=== PATIENT | female | born 1965 | race African-American/Black ===

== ENCOUNTER 2016-11-25 20:10 | Emergency (ER) | payer OTHER ==
[2016-11-25 20:22] VITALS: BP 155/104; PULSE 92; TEMP 98.3; BMI 38.0
[2016-11-25] MEDS ORDERED: LISINOPRIL 10 MG TABLET (FP) PO ONE (21:19)
--- NOTE | 2016-11-25 21:19 | PDOC ---
History of Present Illness - General History Source: Patient Exam Limitations: No Limitations - History of Present Illness Initial Comments: 11/25/16 23:48 The patient is a 51-year-old female with a significant past medical history of HTN and asthma, and presents to the emergency department with worsening intermittent right lower extremity pain for 1 week. She states the RLE pain starts when she is sitting, and is located from her knee to ankles. She reports pain at the posterior right knee with weight bearing. She states she has been taking Tylenol with moderate relief of pain. She denies erythema, swelling, or any acute trauma. She states she is concerned about the leg pain as her daughter has a history of a blood clot in the thigh. The patient denies chest pain, shortness of breath, headache and dizziness. The patient denies fever, chills, nausea, vomit, diarrhea and constipation. The patient denies dysuria, frequency, urgency and hematuria. Allergies: Penicillins Past Surgical History: None reported Social History: Current everyday smoker. Denies ETOH or drug use. PCP: Dr. Josh Jimenez <Leslee Mcneil - Last Filed: 11/25/16 23:48> <Carley Mcduffie - Last Filed: 11/26/16 00:15> - General Chief Complaint: Pain Stated Complaint: PAIN IN RT LEG Time Seen by Provider: 11/25/16 20:53 Past History <Leslee Mcneil - Last Filed: 11/25/16 23:48> - Past Medical History Asthma: Yes HTN: Yes - Immunization History Immunization Up to Date: Yes - Suicide/Smoking/Psychosocial Hx Smoking Status: Yes Smoking History: Current every day smoker Have you smoked in the past 12 months: Yes Number of Cigarettes Smoked Daily: 4 Information on smoking cessation initiated: No Hx Alcohol Use: No Drug/Substance Use Hx: No Substance Use Type: None <Carley Mcduffie - Last Filed: 11/26/16 00:15> - Past Medical History Allergies/Adverse Reactions: Allergies Allergy/AdvReac Type Severity Reaction Status Date / Time Penicillins Allergy Verified 11/25/16 20:19 Home Medications: Ambulatory Orders Lisinopril/Hydrochlorothiazide [Lisinopril-Hctz 20-25 mg Tab] 1 each PO DAILY Ibuprofen [Motrin] 800 mg PO TID #30 tablet 04/13/15 Methocarbamol [Robaxin -] 500 mg PO TID #30 tablet 04/13/15 Oxycodone HCl/Acetaminophen [Percocet 5-325 mg Tablet] 1 - 2 tab PO Q6H #20 tablet 04/13/15 Apixaban [Eliquis] 5 mg PO BID #60 tablet 11/26/16 Review of Systems - Review of Systems Able to Perform ROS?: Yes Comments:: 11/25/16 23:48 GENERAL/CONSTITUTIONAL: No fever or chills. No weakness. HEAD, EYES, EARS, NOSE AND THROAT: No change in vision. No ear pain or discharge. No sore throat. CARDIOVASCULAR: No chest pain or shortness of breath. RESPIRATORY: No cough, wheezing, or hemoptysis. GASTROINTESTINAL: No nausea, vomiting, diarrhea or constipation. GENITOURINARY: No dysuria, frequency, or change in urination. MUSCULOSKELETAL: No neck or back pain. EXTREMITIES: (+) Right lower extremity pain. SKIN: No rash NEUROLOGIC: No headache, vertigo, loss of consciousness, or change in strength/ sensation. HEMATOLOGIC/LYMPHATIC: No anemia, easy bleeding, or history of blood clots. ALLERGIC/IMMUNOLOGIC: No hives or skin allergy. <Leslee Mcneil - Last Filed: 11/25/16 23:48> *Physical Exam - Vital Signs Last Vital Signs Temp Pulse Resp BP Pulse Ox 98.3 F 92 H 18 155/104 100 11/25/16 20:20 11/25/16 20:20 11/25/16 20:20 11/25/16 20:20 11/25/16 20:20 - Physical Exam Comments: 11/25/16 23:48 GENERAL: Awake, alert, and fully oriented, in no acute distress HEAD: No signs of trauma EYES: PERRLA, EOMI, sclera anicteric, conjunctiva clear ENT: Auricles normal inspection, hearing grossly normal, nares patent, oropharynx clear without exudates. Moist mucosa NECK: Normal ROM, supple, no lymphadenopathy, JVD, or masses LUNGS: Breath sounds equal, clear to auscultation bilaterally. No wheezes, and no crackles HEART: Regular rate and rhythm, normal S1 and S2, no murmurs, rubs or gallops ABDOMEN: Soft, nontender, normoactive bowel sounds. No guarding, no rebound. No masses EXTREMITIES: (+) Right popliteal ttp. No ligament laxity. Normal range of motion , no edema. No clubbing or cyanosis. No cords, erythema, or tenderness NEUROLOGICAL: Cranial nerves II through XII grossly intact. Normal speech SKIN: Warm, Dry, normal turgor, no rashes or lesions noted. <Leslee Mcneil - Last Filed: 11/25/16 23:48> - Vital Signs Last Vital Signs Temp Pulse Resp BP Pulse Ox 98.3 F 92 H 18 155/104 100 11/25/16 20:20 11/25/16 20:20 11/25/16 20:20 11/25/16 20:20 11/25/16 20:20 <Carley Mcduffie - Last Filed: 11/26/16 00:15> ED Treatment Course - Medications Given in the ED: ED Medications Discontinued Medications Generic Name Dose Route Start Last Admin Trade Name Pradip PRN Reason Stop Dose Admin Ibuprofen 600 mg 11/25/16 21:20 11/25/16 22:16 Motrin - PO 11/25/16 21:21 600 mg ONCE ONE Administration Lisinopril 10 mg 11/25/16 21:19 11/25/16 22:16 Prinivil PO 11/25/16 21:20 10 mg ONCE ONE Administration <Leslee Mcneil - Last Filed: 11/25/16 23:48> Medical Decision Making - Medical Decision Making 11/26/16 00:02 Pt has posterior calf pain on the right. No redness or swelling or asymmetry. Pt states that her teenager daughter is on eliquis for a DVT. 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 Pt diagnosed with a DVT today. She will be placed on eliquis. Pt has HTN and she is non compliant with meds. She was given a half dose of lisinopril in the ER. SHe was advised to take her meds when she gets home. 11/26/16 00:08 11/26/16 00:08 Patient Name: YOSELYN NORTH THIS IS A PRELIMINARY REPORT FROM [facility] DATE OF SERVICE: 2016-11-25 21:28:12 IMAGES: 20 EXAM: US LOWER EXTREMITY VENOUS DOPPLER HISTORY:Right leg pain. Rule out DVT COMPARISON: None. FINDINGS: The common femoral, profunda femoris, superficial femoral and popliteal veins are all compressible with flow. The posterior tibial vein is marked as noncompressible on images and does not appear to change appreciably in caliber between the pre-and post- compression images. Posterior tibial flow remains intact. No Dawn's cyst is seen. IMPRESSION: Suspected posterior tibial vein thrombosis, no extension into the femoropopliteal deep system. THIS DOCUMENT HAS BEEN ELECTRONICALLY SIGNED 11/26/16 00:15 Pt doesn;t want to stay in the ER and refusing labs <Carley Mcduffie - Last Filed: 11/26/16 00:15> *DC/Admit/Observation/Transfer - Attestations Scribe Attestion: 11/25/16 23:51 Documentation prepared by Leslee Mcneil, acting as medical office professional instructor for Carley Mcduffie MD. <Leslee Mcneil - Last Filed: 11/25/16 23:48> - Discharge Dispostion Admit: No <Carley Mcduffie - Last Filed: 11/26/16 00:15> Diagnosis at time of Disposition: DVT (deep venous thrombosis) - Discharge Dispostion Disposition: HOME Condition at time of disposition: Stable - Prescriptions Prescriptions: Apixaban [Eliquis] 5 mg PO BID #60 tablet - Referrals Referrals: Josh Jimenez MD [Primary Care Provider] - - Patient Instructions Printed Discharge Instructions: DI for Deep Vein Thrombosis
[2016-11-25] MEDS ORDERED: IBUPROFEN 600 MG TABLET (FP) PO ONE ×2 (21:20→22:10)
[2016-11-25] MEDS ORDERED: LISINOPRIL 5 MG TABLET (FP) ONE (22:10)
[2016-11-25] MEDS ORDERED: APIXABAN 5 MG TABLET PO ONE (23:45)
== END 2016-11-26 00:28 | disposition home or self-care (01) ==
LOC: JER 20:10
DX: I82.441 Acute embolism and thrombosis of right tibial vein (principal); I10 Essential (primary) hypertension; J45.909 Unspecified asthma, uncomplicated; F17.210 Nicotine dependence, cigarettes, uncomplicated; Z79.01 Long term (current) use of anticoagulants; Z88.0 Allergy status to penicillin
CPT/HCPCS: 93971-TC; 99281-25

== ENCOUNTER 2016-12-07 11:29 | Emergency (ER) | payer OTHER ==
[2016-12-07 11:33] VITALS: BMI 38.9
--- NOTE | 2016-12-07 11:52 | PDOC ---
History of Present Illness - General History Source: Patient Exam Limitations: No Limitations - History of Present Illness Initial Comments: 12/07/16 11:52 Patient is a 51 year old female with history of HTN and asthma who presents with increasing right leg pain despite compliance with treatment for a DVT diagnosed on 11/25/16. Patient was seen in this ED on 11/25/2016 and found to have a nonocclusive thrombus in the right posterior tibial vein without extension into the femoropopliteal veins. She was started on Eliquis and followed up with her primary physician on the following day who switched her to enoxaparin 100 mg d/t insurance issues. Patient states that she has been compliant with her medication and has an hematology appointment in 5 days but the pain in her leg has been getting worse and became unbearable, 10/28 today. Endorses leg pain and warmth. Denies fever, chills, recent illnesses, shortness of breath, difficulty breathing, chest pain, palpitations, abdominal pains, nausea, vomiting, diarrhea and constipation. Patient endorses taking ibuprofen this morning. She smokes 3-4 cigarettes per day and has no history of cancer. <Ajay Moy - Last Filed: 12/08/16 09:48> <Leti Madera - Last Filed: 12/09/16 15:40> - General Chief Complaint: Pain Stated Complaint: RT LEG PAIN Time Seen by Provider: 12/07/16 11:50 Past History - Past Medical History Asthma: Yes HTN: Yes - Immunization History Immunization Up to Date: Yes - Suicide/Smoking/Psychosocial Hx Smoking Status: Yes Smoking History: Current every day smoker Have you smoked in the past 12 months: Yes Number of Cigarettes Smoked Daily: 4 Information on smoking cessation initiated: No Hx Alcohol Use: No Drug/Substance Use Hx: No Substance Use Type: None <Ajay Moy - Last Filed: 12/08/16 09:48> <Leti Madera - Last Filed: 12/09/16 15:40> - Past Medical History Allergies/Adverse Reactions: Allergies Allergy/AdvReac Type Severity Reaction Status Date / Time Penicillins Allergy Verified 12/07/16 11:30 Home Medications: Ambulatory Orders Lisinopril/Hydrochlorothiazide [Lisinopril-Hctz 20-25 mg Tab] 1 each PO DAILY Ibuprofen [Motrin] 800 mg PO TID #30 tablet 04/13/15 Methocarbamol [Robaxin -] 500 mg PO TID #30 tablet 04/13/15 Oxycodone HCl/Acetaminophen [Percocet 5-325 mg Tablet] 1 - 2 tab PO Q6H #20 tablet 04/13/15 Apixaban [Eliquis] 5 mg PO BID #60 tablet 11/26/16 Methylprednisolone [Medrol Dose Flo] 4 mg PO ASDIR #21 tablet 12/07/16 Oxycodone HCl/Acetaminophen [Percocet 5-325 mg Tablet] 1 - 2 tab PO Q6H PRN #24 tab MDD 8 12/07/16 Review of Systems - Review of Systems Able to Perform ROS?: Yes Comments:: 12/07/16 14:35 GEN: Denies fever, chills, recent illness HEENTM: Denies sore throat, Changes in vision, Changes in hearing Respiratory: Denies Cough, Shortness of Breath Cardiac: Denies Chest Pain, Syncope ABD/GI: Denies Abdominal Pain, Nausea, Vomiting, Diarrhea, Constipation : Denies Dysuria, Burning on urination Musculoskeletal: +right leg pain; Denies muscle or joint pain Integumentary: Denies diaphoresis, rashes, bruises Neurological: Denies MANSFIELD, dizziness, weakness All Other Systems Reviewed and Negative Is the patient limited Georgian proficient: No <Ajay Moy - Last Filed: 12/08/16 09:48> *Physical Exam - Vital Signs Last Vital Signs Temp Pulse Resp BP Pulse Ox 97.7 F 106 H 18 129/92 95 12/07/16 11:30 12/07/16 11:30 12/07/16 11:30 12/07/16 11:30 12/07/16 11:30 - Physical Exam Comments: 12/07/16 14:37 GENERAL: Nourished, Appropriately dressed, AAOx3, NAD HEAD: NCAT EYES: PERRLA, EOMI, sclera anicteric, conjunctiva clear ENT: hearing grossly normal, nares patent, no congestion NECK: Supple, Normal ROM, no LAD, JVD, or masses RESP: Speaking in full sentences, Symmetrical chest expansion, no respiratory distress, lungs CTAB HEART: RRR, normal S1-S2, no MRG ABDOMEN: Soft, NTND, multiple nontender ecchymosis to the abdominal pannus at injection sites, no guarding, no rebound. EXTREMITIES: Normal inspection, ROM limited by pain in right leg, posterior right leg ttp along both sides of the popliteal fossa NEUROLOGICAL: CN II-XII grossly intact. Normal speech, normal gait, no focal sensorimotor deficits SKIN: Warm, Dry, normal turgor, no rashes or lesions noted. <Ajay Moy - Last Filed: 12/08/16 09:48> - Vital Signs Last Vital Signs Temp Pulse Resp BP Pulse Ox 97.4 F L 90 16 104/66 98 12/07/16 15:43 12/07/16 15:43 12/07/16 15:43 12/07/16 15:43 12/07/16 15:43 <Leti Madera - Last Filed: 12/09/16 15:40> ED Treatment Course - LABORATORY CBC & Chemistry Diagram: 12/07/16 12:49 12/07/16 12:49 <Ajay Moy - Last Filed: 12/08/16 09:48> - LABORATORY CBC & Chemistry Diagram: 12/07/16 12:49 12/07/16 12:49 - ADDITIONAL ORDERS Additional order review: 12/07/16 12:49 RBC 4.71 MCV 88.8 MCHC 32.6 RDW 13.4 MPV 9.3 Neutrophils % 49.6 Lymphocytes % 36.6 Monocytes % 9.5 Eosinophils % 2.4 Basophils % 1.9 - Medications Given in the ED: ED Medications Discontinued Medications Generic Name Dose Route Start Last Admin Trade Name Pradip PRN Reason Stop Dose Admin Dexamethasone Sodium Phosphate 10 mg 12/07/16 15:36 12/07/16 15:42 Decadron Injection - IVPUSH 12/07/16 15:37 10 mg ONCE ONE Administration Oxycodone/Acetaminophen 1 combo 12/07/16 12:35 12/07/16 12:50 Percocet 5/325 - PO 12/07/16 12:36 1 combo ONCE ONE Administration Oxycodone/Acetaminophen 1 combo 12/07/16 14:32 12/07/16 14:40 Percocet 5/325 - PO 12/07/16 14:33 1 combo ONCE ONE Administration <Leti Madera - Last Filed: 12/09/16 15:40> Medical Decision Making - Medical Decision Making 12/07/16 12:29 51 year old smoker being treated for dvt in her right leg presenting with increased leg pain Ddx includes but is not limited to medication noncompliance, treatment failure, increasing occlusion, hypercoaguable state despite anticoagulation, fracture, soft tissue injury Pain control Repeat doppler Standard bloodwork 12/07/16 13:55 CBC WBC 8.9 K/mm3 (4.0-10.0) 12/07/16 12:49 RBC 4.71 M/mm3 (3.60-5.2) 12/07/16 12:49 Hgb 13.6 GM/dL (10.7-15.3) 12/07/16 12:49 Hct 41.8 % (32.4-45.2) 12/07/16 12:49 MCV 88.8 fl (80-96) 12/07/16 12:49 MCH 28.9 pg (25.7-33.7) 12/07/16 12:49 MCHC 32.6 g/dl (32.0-36.0) 12/07/16 12:49 RDW 13.4 % (11.6-15.6) 12/07/16 12:49 Plt Count 308 K/MM3 (134-434) 12/07/16 12:49 MPV 9.3 fl (7.5-11.1) 12/07/16 12:49 Neutrophils % 49.6 % (42.8-82.8) 12/07/16 12:49 Lymphocytes % 36.6 % (8-40) 12/07/16 12:49 Monocytes % 9.5 % (3.8-10.2) 12/07/16 12:49 Eosinophils % 2.4 % (0-4.5) 12/07/16 12:49 Basophils % 1.9 % (0-2.0) 12/07/16 12:49 Within normal limits, non concerning 12/07/16 14:11 CMP Sodium 141 mmol/L (136-145) 12/07/16 12:49 Potassium 3.8 mmol/L (3.5-5.1) 12/07/16 12:49 Chloride 103 mmol/L (98-107) 12/07/16 12:49 Carbon Dioxide 28 mmol/L (21-32) 12/07/16 12:49 Anion Gap 10 (8-16) 12/07/16 12:49 BUN 15 mg/dL (7-18) D 12/07/16 12:49 Creatinine 0.8 mg/dL (0.55-1.02) D 12/07/16 12:49 Creat Clearance w eGFR > 60 (>60) 12/07/16 12:49 Random Glucose 92 mg/dL (74-106) 12/07/16 12:49 Calcium 9.4 mg/dL (8.5-10.1) 12/07/16 12:49 Total Bilirubin 0.6 mg/dL (0.2-1.0) D 12/07/16 12:49 AST 16 U/L (15-37) 12/07/16 12:49 ALT 30 U/L (12-78) 12/07/16 12:49 Alkaline Phosphatase 93 U/L (45-117) 12/07/16 12:49 Total Protein 7.8 g/dl (6.4-8.2) 12/07/16 12:49 Albumin 4.2 g/dl (3.4-5.0) 12/07/16 12:49 Within normal limits, non concerning 12/07/16 14:30 Duplex shows no evidence of DVT in the right lower extremity. Patient should be ok for discharge if pain can be controlled. Patient still c/o pain, second percocet 12/07/16 15:30 Reevaluated patient. still c/o pain. Pain is with normal leg flexion (active or passive) and weight bearing Pain not elicited with palpation no pain with medial, lateral stress or hyperextension Cannot immobilize the leg d/t DVT Cannot use NSAID d/t anticoagulation Attempt to use decadron 10 mg 12/07/16 15:38 On reevaluation, pt endorses she has been having times when her leg is catching/ locking when going up stairs consistent with meniscus injury Pain is better managed and patient feels she could ambulate with assistance. Provided patient with crutches and instructed her on their use. Patient able to ambulate around the room Patient to be discharged with minimal number of percocet and medrol dose pack and orthopedic referral for early next week Plan discussed with patient and return precautions given. Patient verbalized understanding and agreement with the plan. <Ajay Moy - Last Filed: 12/08/16 09:48> *DC/Admit/Observation/Transfer - Discharge Dispostion Admit: No <Ajay Moy - Last Filed: 12/08/16 09:48> <Leti Madera - Last Filed: 12/09/16 15:40> Diagnosis at time of Disposition: Knee pain, acute Qualifiers: Laterality: right Qualified Code(s): M25.561 - Pain in right knee - Discharge Dispostion Disposition: HOME Condition at time of disposition: Stable - Prescriptions Prescriptions: Methylprednisolone [Medrol Dose Flo] 4 mg PO ASDIR #21 tablet Oxycodone HCl/Acetaminophen [Percocet 5-325 mg Tablet] 1 - 2 tab PO Q6H PRN #24 tab MDD 8 PRN Reason: Pain - Referrals Referrals: Josh Jimenez MD [Primary Care Provider] - Ritesh Soto MD [Staff Physician] - - Patient Instructions Printed Discharge Instructions: Meniscal Tear Additional Instructions: You need to call Dr. Soto's office next week to make an appointment to evaluate your knee. As we discussed, this may require an MRI. It is important that you DO NOT put compression on the leg. This could complicate the treatment for your DVT. It is also important that you NOT take any NSAID medication including Asprin, Advil and naproxen. I have provided a prescription for pain medicine. You can take two of these every 6 hours as needed for pain. Do not take this medication with other medications containing Tylenol. This medication may make you sleepy and you should not drive or operate heavy machinery until you know how it affects you. I have also provided a prescription for a steroid taper that you should take as directed. If your pain becomes significantly worse and is not relieved with the pain medication or your develop any new or concerning symptoms such as difficult breathing or chest pain you need to return to the emergency department immediately. Print Language: IRISH
--- NOTE | 2016-12-07 12:18 | PDOC ---
Attending Attestation - HPI HPI: 12/07/16 12:23 51 year old female, with significant past medical history of DVT (11/25/16 on lovenox), HTN, and asthma, who presents to the emergency room with RLE pain and swelling x 2 weeks. She states that she has been compliant with lovenox, but the pain has persisted and progressively worsened to an 8/10 in severity. The pain is exacerbated secondary to walking and is preventing her from bending her leg. She notes that she followed up with her PCP the day after being discharged (11/26/16) and has a follow up appointment with hematology/oncology on Saturday , December 12. Denies chest pain, SOB. Denies fever, chills, nausea, vomiting. Denies abdominal pain. Allergies: penicillins Social history: Tobacco use (3-4 cigarettes/day). PCP: Dr. Josh Jimenez 12/07/16 15:00 <Jaclyn Lutz - Last Filed: 12/07/16 15:00> - Resident Resident Name: Ajay Moy - ED Attending Attestation I have performed the following: I have examined & evaluated the patient, The case was reviewed & discussed with the resident, I agree w/resident's findings & plan, Exceptions are as noted - Physicial Exam PE: GENERAL: Awake, alert, and fully oriented, in no acute distress HEAD: No signs of trauma EYES: PERRLA, EOMI, sclera anicteric, conjunctiva clear ENT: Auricles normal inspection, hearing grossly normal, nares patent, oropharynx clear without exudates. Moist mucosa NECK: Normal ROM, supple, no lymphadenopathy, JVD, or masses LUNGS: Breath sounds equal, clear to auscultation bilaterally. No wheezes, and no crackles HEART: Regular rate and rhythm, normal S1 and S2, no murmurs, rubs or gallops ABDOMEN: Soft, nontender, normoactive bowel sounds. No guarding, no rebound. No masses EXTREMITIES: Dec ROM RLE due to pain. +Tenderness in the popliteal region. Remainder of extremities with normal range of motion, no edema. No clubbing or cyanosis. No cords, erythema. NEUROLOGICAL: Cranial nerves II through XII grossly intact. Normal speech. Motor and sensation intact. +Antalgic gait. SKIN: Warm, Dry, normal turgor, no rashes or lesions noted. - Medical Decision Making 12/07/16 12:46 Pt states she took ibuprofen this AM for pain. I explained that NSAIDs must be avoided when taking lovenox. Will obtain repeat DVT study to reevaluate, as she states her pain is worsening. No signs of cellulitis. 12/07/16 16:47 DVT study is negative. Will recommend that the patient continue lovenox until she follows up with heme/onc. Also of note, she has had recent knee pain, notices it locking on her at times, difficulty moving secondary to pain. Suspect ligamentous injury. Would prefer NSAIDs for pain, however, not while on lovenox. Will give medrol dose-rylan for pain. Ortho f/u. <Leti Madera - Last Filed: 12/07/16 16:49>
[2016-12-07 13:09] LABS: BASOPHIL 1.9 % (0-2.0); EOSINOPHIL 2.4 % (0-4.5); MCH 28.9 pg (25.7-33.7); MCHC 32.6 g/dl (32.0-36.0); MEAN CELL VOLUME 88.8 fl (80-96); MEAN PLT VOLUME 9.3 fl (7.5-11.1); NEUTROPHILS 49.6 % (42.8-82.8); PLATELET COUNT 308 K/MM3 (134-434); RDW 13.4 % (11.6-15.6); WHITE BLOOD COUNT 8.9 K/mm3 (4.0-10.0)
[2016-12-07 13:46] LABS: ALBUMIN 4.2 g/dl (3.4-5.0); ANION GAP 10 (8-16); CALCIUM 9.4 mg/dL (8.5-10.1); CO2 28 mmol/L (21-32); CREATININE 0.8 mg/dL (0.55-1.02); GLUCOSE,RANDOM 92 mg/dL (74-106); SGOT/AST 16 U/L (15-37); SGPT/ALT 30 U/L (12-78)
[2016-12-07 13:48] LABS: ALK PHOS 93 U/L (45-117); BILIRUBIN,TOTAL 0.6 mg/dL (0.2-1.0); TOT PROT 7.8 g/dl (6.4-8.2)
[2016-12-07] MEDS ORDERED: DEXAMETHASONE SOD PHOSPHATE 10 MG/1 ML VIAL IVPUSH ONE (15:36)
[2016-12-07 15:43] VITALS: BP 104/66; PULSE 90; TEMP 97.4
[2016-12-07] MEDS ORDERED: DEXAMETHASONE SOD PHOSPHATE 10 MG/1 ML VIAL ONE (15:45)
== END 2016-12-07 17:10 | disposition home or self-care (01) ==
LOC: JER 11:29 → SUPCPDRO 11:29 → JER 17:10
PROC: 3E0333Z Introduction of Anti-inflammatory into Peripheral Vein, Percutaneous Approach (ICD-10-PCS; principal; 2016-12-07)
DX: M25.561 Pain in right knee (principal); Z86.718 Personal history of other venous thrombosis and embolism; Z79.01 Long term (current) use of anticoagulants; I10 Essential (primary) hypertension; J45.909 Unspecified asthma, uncomplicated; F17.210 Nicotine dependence, cigarettes, uncomplicated
CPT/HCPCS: 36415; 80053; 85025; 93971-TC; 96374; 99283-25

== ENCOUNTER 2018-11-13 12:16 | Emergency (ER) | payer OTHER ==
[2018-11-13 12:28] VITALS: BMI 38.9
--- NOTE | 2018-11-13 13:05 | PDOC ---
History of Present Illness - General Chief Complaint: Blood Pressure Problem Stated Complaint: HYPERTENSION Time Seen by Provider: 11/13/18 12:59 Past History - Past Medical History Allergies/Adverse Reactions: Allergies Allergy/AdvReac Type Severity Reaction Status Date / Time Penicillins Allergy Verified 11/13/18 12:28 Home Medications: Ambulatory Orders Lisinopril/Hydrochlorothiazide [Lisinopril-Hctz 20-25 mg Tab] 1 each PO DAILY Ibuprofen [Motrin] 800 mg PO TID #30 tablet 04/13/15 Methocarbamol [Robaxin -] 500 mg PO TID #30 tablet 04/13/15 Oxycodone HCl/Acetaminophen [Percocet 5-325 mg Tablet] 1 - 2 tab PO Q6H #20 tablet 04/13/15 Apixaban [Eliquis] 5 mg PO BID #60 tablet 11/26/16 Methylprednisolone [Medrol Dose Flo] 4 mg PO ASDIR #21 tablet 12/07/16 Oxycodone HCl/Acetaminophen [Percocet 5-325 mg Tablet] 1 - 2 tab PO Q6H PRN #24 tab MDD 8 12/07/16 Lisinopril 20 mg PO DAILY #30 tablet 11/13/18 Phenazopyridine HCl [Pyridium] 200 mg PO TID #5 tablet 11/13/18 Asthma: Yes COPD: No Diabetes: Yes (BORDERLINE) HTN: Yes - Immunization History Immunization Up to Date: Yes - Psycho Social/Smoking Cessation Hx Smoking Status: Yes Smoking History: Current every day smoker Have you smoked in the past 12 months: Yes Number of Cigarettes Smoked Daily: 6 Information on smoking cessation initiated: No Hx Alcohol Use: No Drug/Substance Use Hx: No Substance Use Type: None *Physical Exam - Vital Signs Last Vital Signs Temp Pulse Resp BP Pulse Ox 98.4 F 101 H 18 171/107 H 97 11/13/18 12:25 11/13/18 12:25 11/13/18 12:25 11/13/18 12:25 11/13/18 12:25 ED Treatment Course - LABORATORY CBC & Chemistry Diagram: 11/13/18 14:00 11/13/18 14:00 Medical Decision Making - Medical Decision Making HPI: 53yo F with PMH of HTN, asthma, smoking (5-6 cigarettes for over ten years), DVT sent by her primary care provider for evaluation of hypertension. Patient states she has been non-adherent to her medication regimen (as listed below), only having taken about 25% of her medicines. She did take her medications today. Patient states she is has a blood pressure machine at home but does not use it and does not know what her baseline blood pressure is. She also states her diet has been poor. Reporting a cough for which her provider gave her prednisone and azithromycin. Has some shortness of breath which she attributes to her asthma. Took her albuterol pump today with relief of symptoms. No fevers , chills, headache, chest pain, or abdominal pain. PCP: PAUL Molina ([phone]) Home meds: Lisinopril 20mg daily Metformin 850mg daily HCTZ 12.5mg daily Folic acid 1mg daily Ergocalciferol 1.25 mg one a week ROS: Constitutional: no fever, no chills HEENT: no throat pain, no dysphagia Cardiovascular: no chest pain, no palpitations Respiratory: +cough, +shortness of breath Gastrointestinal: no abdominal pain, no nausea Genitourinary: no dysuria, no hematuria Musculoskeletal: no myalgia, no arthralgia Skin: no rash, no itching Neurologic: no headache, no weakness PE: General: Awake, alert, and fully oriented, morbidly obese, in no acute distress Head: No signs of trauma Eyes: EOMI, sclera anicteric ENT: Moist mucus membranes Neck: Normal ROM, supple Lungs: Lungs with diffuse wheezes Cardio: Regular rhythm, S1 and S2 present Abdomen: Soft, nontender. No guarding, no rebound, no masses Extremities: Normal range of motion, Distal pulses present, No calf tenderness SKIN: Warm, Dry, normal turgor Neurologic: Cranial nerves II through XII grossly intact. Normal speech ED Course/MDM: DDX including but not limited to hypertension urgency vs emergency, medication noncompliance, ACS, CANDIDO Labs, EKG, CXR Duonebs 11/13/18 13:05 CBC WBC 11.5 K/mm3 (4.0-10.0) H 11/13/18 14:00 RBC 4.74 M/mm3 (3.60-5.2) 11/13/18 14:00 Hgb 13.7 GM/dL (10.7-15.3) 11/13/18 14:00 Hct 42.5 % (32.4-45.2) 11/13/18 14:00 MCV 89.6 fl (80-96) 11/13/18 14:00 MCH 28.9 pg (25.7-33.7) 11/13/18 14:00 MCHC 32.3 g/dl (32.0-36.0) 11/13/18 14:00 RDW 14.0 % (11.6-15.6) 11/13/18 14:00 Plt Count 316 K/MM3 (134-434) 11/13/18 14:00 MPV 9.2 fl (7.5-11.1) 11/13/18 14:00 Absolute Neuts (auto) 6.5 K/mm3 (1.5-8.0) 11/13/18 14:00 Neutrophils % 56.7 % (42.8-82.8) 11/13/18 14:00 Lymphocytes % 32.9 % (8-40) 11/13/18 14:00 Monocytes % 6.9 % (3.8-10.2) 11/13/18 14:00 Eosinophils % 2.2 % (0-4.5) 11/13/18 14:00 Basophils % 1.3 % (0-2.0) 11/13/18 14:00 Nucleated RBC % 0 % (0-0) 11/13/18 14:00 Mild leukocytosis CMP Sodium 139 mmol/L (136-145) 11/13/18 14:00 Potassium 5.4 mmol/L (3.5-5.1) H 11/13/18 14:00 Chloride 106 mmol/L (98-107) 11/13/18 14:00 Carbon Dioxide 25 mmol/L (21-32) 11/13/18 14:00 Anion Gap 8 MMOL/L (8-16) 11/13/18 14:00 BUN 14.8 mg/dL (7-18) 11/13/18 14:00 Creatinine 0.8 mg/dL (0.55-1.3) 11/13/18 14:00 Est GFR (CKD-EPI)AfAm 98.93 11/13/18 14:00 Est GFR (CKD-EPI)NonAf 85.36 11/13/18 14:00 Random Glucose 98 mg/dL (74-106) 11/13/18 14:00 Calcium 9.5 mg/dL (8.5-10.1) 11/13/18 14:00 Total Bilirubin 0.5 mg/dL (0.2-1) 11/13/18 14:00 AST 37 U/L (15-37) 11/13/18 14:00 ALT 18 U/L (13-61) 11/13/18 14:00 Alkaline Phosphatase 95 U/L (45-117) 11/13/18 14:00 Total Protein 7.6 g/dl (6.4-8.2) 11/13/18 14:00 Albumin 3.7 g/dl (3.4-5.0) 11/13/18 14:00 K mildly elevated, however, this is a slightly hemolyzed sample Normal Cr Pending tpn EKG: Rate 91, QTc 469, NSR Pending Xray 11/13/18 15:18 Call to patient's PCP regarding discharge planning, [employer] Jesse updated Patient will follow up in the office tomorrow Lung exam improved HR still tachycardic; we will give patient some fluids and reassess 11/13/18 15:41 CXR, as read by radiology: "Prior: April 09, 2015 Procedure: PA and lateral view of the chest were performed. Findings: No bony abnormalities are identified. Cardiac silhouette is within normal limits. There is no evidence of pneumothorax, contusion, or pleural effusion. No focal infiltrate or other active pulmonary process is identified. IMPRESSION: No evidence of active pulmonary disease. " 11/13/18 16:22 BP 128/79 Plan for discharge Patient states she has all her medicines and will be seeing her PCP tomorrow. Hypertension is likely due to medication non-adherence. Motivational interviewing used to encourage patient to take her medications. Patient states she has a pill organizer. Safe for discharge 11/13/18 16:34 Discharge - Discharge Information Problems reviewed: Yes Clinical Impression/Diagnosis: Hypertension Qualifiers: Hypertension type: unspecified Qualified Code(s): I10 - Essential (primary) hypertension Asthma Qualifiers: Asthma severity: mild Asthma persistence: unspecified Asthma complication type : uncomplicated Qualified Code(s): J45.909 - Unspecified asthma, uncomplicated Condition: Improved Disposition: HOME - Additional Discharge Information Prescriptions: Lisinopril 20 mg PO DAILY #30 tablet Phenazopyridine HCl [Pyridium] 200 mg PO TID #5 tablet - Follow up/Referral Referrals: Annalise Molina NP [Primary Care Provider] - - Patient Discharge Instructions Patient Printed Discharge Instructions: DI for High Blood Pressure Additional Instructions: You came to the emergency department for high blood pressure. Labs, EKG, and Xray did not indicate acute pathology. Prescription sent to your pharmacy. Take as instructed. Do not take steroids (prednisone) as they may raise your blood pressure. I spoke with your PCP Annalise Molina. Follow-up with your primary care provider tomorrow to discuss this ED visit and to further evaluate your symptoms. Your workup is not complete until you do so. You can drop in to the office; you do not need to call and make an appointment. Immediate medical attention is required if you experience: severe headache, have a seizure, have focal numbness or weakness, chest pain, shortness of breath , or any new or concerning symptoms. If you think you are having an emergency, call for emergency medical services or present to the emergency department right away. - Post Discharge Activity
[2018-11-13] MEDS ORDERED: ALBUTEROL SO4 2.5/IPRATROPIUM 0.5 INH SOL 3 ML VIAL.NEB. NEB ONE ×2 (13:42→14:14)
--- NOTE | 2018-11-13 13:55 | PDOC ---
Attending Attestation - Resident Resident Name: Leti Paul - ED Attending Attestation I have performed the following: I have examined & evaluated the patient, The case was reviewed & discussed with the resident, I agree w/resident's findings & plan - HPI HPI: 11/13/18 13:54 53 YOF with h/o HTN, asthma, DVT on AC presenting with asymptomatic HTN, SBP 170s at doctor's office poorly compliant with her usual medications but did take her lisinopril this morning +SOB, but usually chronic in the setting of her asthma. no chest pain recently started on azithromycin and prednisone, started today with first dose did not refill antihypertensives today though sent in by PMD Dr Molina for high blood pressure evaluation. 11/13/18 15:36 11/13/18 16:28 - Physicial Exam PE: 11/13/18 13:55 Agree with the resident's HPI and PE as documented in the electronic medical record. NAD, well appearing, EOMI, PERRL, nl conjunctiva, anicteric; neck supple. lungs with b/l wheezing, +tachycardic, no murmurs, abdomen soft nontender. Back nontender. BLANCO x4, no focal neuro deficits. No peripheral edema. normal color for ethnicity, WWP. 11/13/18 16:29 - Medical Decision Making 11/13/18 13:52 See HPI for details. Prior notes reviewed, including admissions, discharges and consultations. Vital signs reviewed,hypertensive 170/100s, low tachy 100s Vital Signs Temp Pulse Resp BP Pulse Ox 98.4 F 101 H 18 171/107 H 97 11/13/18 12:25 11/13/18 12:25 11/13/18 12:25 11/13/18 12:25 11/13/18 12:25 laboratory results and imaging reviewed, basic labs and lytes wnl, likely slightly hemolyzed chem so likely mildly elevated K, no ekg changes, so doubt true. CXR_clear, no acute pathology Cardiac panel_neg trop, reassuring EKG normal sinus rhythm at 91 bpm, no interval abnormalities, narrow QRS, ST and T wave segments and morphology normal. ED course -interventions: given duonebs for scant wheezing, but no pulmonary distress tachy likely exacerbated by duonebs/albuterol. rpt VS much improved, normotensive, no longer tachy. reassuring VS and pt is well appearing, neuro intact, ambulatory being treated by pmd for bronchitis clinical call out to primary doc Dr Molina, discussed care and discharge rx lisinopril meds for BP diet modifications, hold on steroids for risk of increase in BP as known side effect c/w albuterol prn for asthma/wheeze. compliance with medication regimen, such as antihypertensive regimen and BP monitoring. Pt to be discharged in stable condition. Patient made aware of clinical impression, treatment recommendations and disposition plan, return precautions discussed (including but not limited to new or persistent/worsening symptoms, pain, fevers, or signs of infection, chest pain, respiratory distress, inability to tolerate oral intake, dehydration, syncope, or neurologic changes) . Follow up with PMD as recommended, follow up information provided, take medications as instructed for duration of time. continue with supportive care, avoid triggers and precipitants. All questions answered to patient's satisfaction and expressed understanding and comfort with this. At the time of discharge, the patient is alert, clinically improved, tolerating po and verbalizes understanding of instructions, satisfied with the care received and felt comfortable with the plan. Patient does not suffer from an acute life- threatening medical condition at this time and is safe for outpatient follow- up. 11/13/18 16:29 Heart Score/ECG Review #1 ECG reviewed & interpreted by me at: 14:20 General ECG Interpretation: Sinus Rhythm, Normal Rate, Normal Intervals Compared to previous ECG there are: No significant change 11/13/18 14:59 EKG normal sinus rhythm at 91 bpm, no interval abnormalities, narrow QRS, ST and T wave segments and morphology normal.
[2018-11-13 14:04] LABS: BASO % 1.3 % (0-2.0); EOS % 2.2 % (0-4.5); HEMATOCRIT 42.5 % (32.4-45.2); HEMOGLOBIN 13.7 GM/dL (10.7-15.3); LYMPH % 32.9 % (8-40); MCH 28.9 pg (25.7-33.7); MCHC 32.3 g/dl (32.0-36.0); MEAN CELL VOLUME 89.6 fl (80-96); MEAN PLT VOLUME 9.2 fl (7.5-11.1); MONO % 6.9 % (3.8-10.2); NEUT % 56.7 % (42.8-82.8); PLATELET COUNT 316 K/MM3 (134-434); RBC 4.74 M/mm3 (3.60-5.2); WHITE BLOOD COUNT 11.5 K/mm3 (4.0-10.0)
[2018-11-13 14:21] LABS: INR 0.94 (0.83-1.09); PROTHROMBIN TIME (PATIENT) 11.1 SEC (9.7-13.0)
[2018-11-13 14:46] LABS: ALBUMIN 3.7 g/dl (3.4-5.0); ALK PHOS 95 U/L (45-117); ANION GAP 8 MMOL/L (8-16); BILIRUBIN,TOTAL 0.5 mg/dL (0.2-1); BLOOD UREA NITROGEN 14.8 mg/dL (7-18); CALCIUM 9.5 mg/dL (8.5-10.1); CHLORIDE 106 mmol/L (98-107); CO2 25 mmol/L (21-32); CREATININE 0.8 mg/dL (0.55-1.3); GLUCOSE,RANDOM 98 mg/dL (74-106); POTASSIUM 5.4 mmol/L (3.5-5.1); SGOT/AST 37 U/L (15-37); SGPT/ALT 18 U/L (13-61); SODIUM 139 mmol/L (136-145); TOT PROT 7.6 g/dl (6.4-8.2)
[2018-11-13] MEDS ORDERED: SODIUM CHLORIDE 1,000 ML IV STA (15:35)
--- NOTE | 2018-11-13 16:19 | EKG ---
Test Reason : Blood Pressure : / mmHG Vent. Rate : 091 BPM Atrial Rate : 091 BPM P-R Int : 158 ms QRS Dur : 082 ms QT Int : 382 ms P-R-T Axes : 061 041 033 degrees QTc Int : 469 ms NORMAL SINUS RHYTHM NORMAL ECG WHEN COMPARED WITH ECG OF 12-APR-2015 22:33, NO SIGNIFICANT CHANGE WAS FOUND Confirmed by NATHEN BEDOYA MD ([id number]) on 11/13/2018 4:19:27 PM Referred By: Confirmed By:NATHEN BEDOYA MD
[2018-11-13 16:27] VITALS: BP 128/79; PULSE 95; TEMP 98.5
[2018-11-13 18:14] LABS: ACTIVATED PTT 29.2 SECONDS (25.2-36.5)
[2018-11-13] MEDS ORDERED: PHENAZOPYRIDINE HCL 100 MG TABLET (FP) PO ONE (18:14)
[2018-11-13] MEDS ORDERED: ACETAMINOPHEN 325 MG TABLET (FP) PO ONE (18:14)
== END 2018-11-13 16:42 | disposition home or self-care (01) ==
LOC: JER 12:16
PROC: 3E0337Z Introduction of Electrolytic and Water Balance Substance into Peripheral Vein, Percutaneous Approach (ICD-10-PCS; principal; 2018-11-13)
PROC: 3E0F7GC Introduction of Other Therapeutic Substance into Respiratory Tract, Via Natural or Artificial Opening (ICD-10-PCS; 2018-11-13)
DX: I10 Essential (primary) hypertension (principal); J45.909 Unspecified asthma, uncomplicated
CPT/HCPCS: 36415; 71046-TC-FY; 80053; 82550; 84484; 85025; 85610; 85730; 93005; 93010; 99284-25; J7030

== ENCOUNTER → 2022-07-12 | Day surgery (SDC) | payer OTHER | END | disposition home or self-care (01) | LOC: FMAMMOTONE 12:05 | PROVIDERS: ATTEND Internal Medicine | PROC: 0HBT3ZX Excision of Right Breast, Percutaneous Approach, Diagnostic (ICD-10-PCS; principal; 2022-07-12) | DX: D05.11 Intraductal carcinoma in situ of right breast (principal); N64.1 Fat necrosis of breast; N64.89 Other specified disorders of breast; R92.0 Mammographic microcalcification found on diagnostic imaging of breast | CPT/HCPCS: 19081; 19082; 76098-TC-FY; 87899; 88305-TC; 88341-TC; 88342-TC; A4648 ==

== ENCOUNTER → 2022-09-10 | Day surgery (SDC) | payer OTHER | END | disposition home or self-care (01) | LOC: JRADUS-SUR 09:58 | PROVIDERS: ATTEND Surgery Surgical Oncology | PROC: BH00ZZZ Plain Radiography of Right Breast (ICD-10-PCS; principal; 2022-09-10) | DX: D05.11 Intraductal carcinoma in situ of right breast (principal) | CPT/HCPCS: 19281; 19282; A4648 ==

== ENCOUNTER 2022-09-12 05:04 | Day surgery (SDC) | payer OTHER ==
[2022-09-07 10:42] VITALS: BMI 38.0
[~2022-09-12 05:04] MED LIST: BUPIVACAINE HCL/PF 0.5% (5MG/ML) 10 ML VIAL IJ ONE
[2022-09-12] MEDS ORDERED: BUPIVACAINE HCL/PF 0.5% (5MG/ML) 10 ML VIAL ONE (07:16)
[2022-09-12] MEDS ORDERED: BENZOIN/ALOE VERA/STORAX/TOLU 58 ML BOTTLE ONE (07:16)
[2022-09-12] MEDS ORDERED: LIDOCAINE HCL 1%, 10 MG/ML (10ML VIAL) MDV ONE (07:16)
[2022-09-12] MEDS ORDERED: PROPOFOL 20 ML ONE ×2 (07:21→08:23)
[2022-09-12] MEDS ORDERED: DEXAMETHASONE SOD PHOSPHATE 4 MG/1 ML VIAL ONE (07:22)
[2022-09-12] MEDS ORDERED: ONDANSETRON 4 MG/2 ML VIAL ONE (07:22)
[2022-09-12] MEDS ORDERED: LIDOCAINE HCL/PF 2% SDV 5ML VIAL ONE (07:22)
[2022-09-12] MEDS ORDERED: SEVOFLURANE 250 ML BTL ONE (07:23)
[2022-09-12] MEDS ORDERED: KETOROLAC TROMETHAMINE 30 MG/1 ML VIAL ONE (08:30)
[2022-09-12] MEDS ORDERED: BUPIVACAINE HCL/PF 0.5% (5MG/ML) 10 ML VIAL IJ ONE (08:47)
[2022-09-12] MEDS ORDERED: ONDANSETRON 4 MG/2 ML VIAL IVPUSH PRN (09:33)
[2022-09-12] MEDS ORDERED: oxyCODONE HCL 5 MG TABLET PO PRN ×2 (09:33)
[2022-09-12] MEDS ORDERED: ACETAMINOPHEN 1000 MG/100 ML BAG IVPB PRN (09:33)
[2022-09-12] MEDS ORDERED: LACTATED RINGERS SOLUTION 1,000 ML IV SCH (09:45)
[2022-09-12 10:28] VITALS: PULSE 73; TEMP 97.6
[2022-09-12 11:42] VITALS: BP 118/75; RESP 70
== END 2022-09-12 11:11 | disposition home or self-care (01) ==
LOC: JASU-SURG 05:04
PROVIDERS: ATTEND Surgery Surgical Oncology
PROC: 0HBT0ZZ Excision of Right Breast, Open Approach (ICD-10-PCS; principal; 2022-09-12 08:00)
DX: D05.11 Intraductal carcinoma in situ of right breast (principal)
CPT/HCPCS: 76098-TC-FY; 82962; 88307-TC; 88341-TC; 88342-TC; 94760

== ENCOUNTER 2022-12-12 04:49 | Day surgery (SDC) | payer OTHER ==
[2022-12-07 15:46] VITALS: BMI 38.0
[2022-12-12] MEDS ORDERED: BUPIVACAINE HCL/PF 0.5% (5MG/ML) 10 ML VIAL ONE (10:12)
[2022-12-12] MEDS ORDERED: oxyCODONE HCL 5 MG TABLET PO PRN ×2 (10:13→11:15)
[2022-12-12] MEDS ORDERED: LACTATED RINGERS SOLUTION 1,000 ML IV SCH ×2 (10:15→11:15)
[2022-12-12] MEDS ORDERED: MIDAZOLAM HCL 2 MG/2 ML SINGLE DOSE VIAL ONE (10:26)
[2022-12-12] MEDS ORDERED: FENTANYL CITRATE/PF 50 MCG/ML VIAL ONE ×2 (10:37→11:58)
[2022-12-12] MEDS ORDERED: BUPIVACAINE HCL/PF 0.5% (5 MG/ML) 30 ML VIAL IJ ONE (10:41)
[2022-12-12] MEDS ORDERED: ROCURONIUM BROMIDE 50 MG/5 ML SYRINGE ONE (10:56)
[2022-12-12] MEDS ORDERED: oxyCODONE HCL 5 MG TABLET ONE (13:00)
[2022-12-12 13:53] VITALS: BP 149/89; PULSE 72; RESP 20; TEMP 97.4
== END 2022-12-12 14:04 | disposition home or self-care (01) ==
LOC: JASU-SURG 04:49
PROVIDERS: ATTEND Surgery Surgical Oncology
PROC: 0HBT0ZX Excision of Right Breast, Open Approach, Diagnostic (ICD-10-PCS; principal; 2022-12-12 11:00)
DX: D05.11 Intraductal carcinoma in situ of right breast (principal)
CPT/HCPCS: 82962; 88307-TC; 94760

== ENCOUNTER 2023-02-27 04:23 | Day surgery (SDC) | payer OTHER ==
[2023-02-22 15:21] VITALS: BMI 38.9
[2023-02-27] MEDS ORDERED: MIDAZOLAM HCL 2 MG/2 ML SINGLE DOSE VIAL ONE (13:03)
[2023-02-27] MEDS ORDERED: PROPOFOL 20 ML ONE ×2 (13:03→13:38)
[2023-02-27] MEDS ORDERED: ONDANSETRON 4 MG/2 ML VIAL ONE (13:19)
[2023-02-27] MEDS ORDERED: KETOROLAC TROMETHAMINE 30 MG/1 ML VIAL ONE (13:19)
[2023-02-27] MEDS ORDERED: BUPIVACAINE HCL/PF 0.25% (2.5MG/ML) 10 ML VIAL IJ ONE (13:39)
[2023-02-27] MEDS ORDERED: oxyCODONE HCL 5 MG TABLET PO PRN (14:01)
[2023-02-27] MEDS ORDERED: ONDANSETRON 4 MG/2 ML VIAL IVPUSH PRN (14:01)
[2023-02-27] MEDS ORDERED: ACETAMINOPHEN 325 MG TABLET (FP) PO PRN (14:01)
[2023-02-27] MEDS ORDERED: LACTATED RINGERS SOLUTION 1,000 ML IV SCH (14:15)
[2023-02-27 15:19] VITALS: RESP 18
[2023-02-27 15:50] VITALS: BP 120/86; PULSE 88; TEMP 97.1
== END 2023-02-27 15:50 | disposition home or self-care (01) ==
LOC: JASU-SURG 04:23
PROVIDERS: ATTEND Surgery Surgical Oncology
PROC: 0HBT0ZZ Excision of Right Breast, Open Approach (ICD-10-PCS; principal; 2023-02-27 13:00)
DX: D05.11 Intraductal carcinoma in situ of right breast (principal)
CPT/HCPCS: 82962; 88307-TC; 94760